=== PATIENT | male | born 1945 | race Caucasian/White ===

== ENCOUNTER 2023-07-16 12:51 | Inpatient (IN) | payer OTHER, SELFPAY ==
[2023-07-16] VITALS (9 sets, daily range): BP systolic 115–130; BP diastolic 62–76; PULSE 65–75; RESP 17–34; TEMP 36.6–37; O2SAT 95–97; BMI 28.8
--- NOTE | 2023-07-16 13:11 | XRR_ITS ---
PROCEDURE INFORMATION: Exam: XR Chest Exam date and time: 07/16/2023 1:21 PM Age: 77 years old Clinical indication: Cough and dyspnea; Prior surgery; Surgery date: 1-6 months; Patient HX: Fluid retention; Recent cabg TECHNIQUE: Imaging protocol: Radiologic exam of the chest. Views: 1 view. COMPARISON: CR (CHEST, ) 06/26/2023 9:00 PM FINDINGS: Lungs: No new focal consolidation. Slightly less conspicuous basilar opacities and probable trace pleural effusions. Pleural spaces: No pneumothorax. Heart/Mediastinum: Heart size unchanged. Bones/joints: No acute findings. XR/XR chest 1V portable [id number] IMPRESSION: No new focal consolidation.
--- NOTE | 2023-07-16 13:12 | ECG_ITS ---
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 Measurements Intervals [place] Rate: 70 P: 22 SD: 274 QRS: 59 QRSD: 127 T: 82 QT: 440 QTc: 477 Interpretive Statements SINUS RHYTHM WITH FIRST DEGREE AV BLOCK ANTERIOR MYOCARDIAL INFARCTION , PROBABLY OLD [40+ ms Q WAVE AND/OR ST/T ABNORMALITY IN V3/V4] Compared to ECG 06/26/2023 21:02:03 Myocardial infarct finding now present T-wave abnormality no longer present Electronically Signed On 07-16-2023 15:32:34 AUTO TESTER by Kathy Jett M.D. [id number]
--- NOTE | 2023-07-16 13:36 | W.ED.GENADLT ---
HPI - General Adult General: Chief complaint: General Medical Stated complaint: Swollen legs Time Seen by Provider: 07/16/23 13:11 Source: patient Mode of arrival: ambulatory History of Present Illness: 77-year-old male presents emergency room complaining of swelling in his legs. He has some skin breakdown and bullous formation with serous drainage from his left anterior lower leg. He denies any chest pain he has noticed orthopnea and increasing dyspnea with exertion. Onset (ago): minute(s) Severity: moderate Relieving factors: medication and other (Upright position) Exacerbating factors: other (Supine) Associated symptoms: Reports dyspnea; Deny chest pain, confusion, cough, diaphoresis, decreased appetite, fevers/chills, headache(s), malaise, nausea, rash, palpitations, seizures, short of breath, syncope, vomiting, weakness or other Review of Systems Const: Denies: malaise or diaphoresis Card: Reports: edema, swelling of feet/ankles, dyspnea on exertion and orthopnea; Denies: chest pain, palpitations or syncope Resp: Reports: dyspnea GI: Denies: abdominal pain, nausea or vomiting : Denies: dysuria, urinary frequency or urinary urgency Musc: Denies: neck pain or back pain Skin/Breast: Denies: rash Neuro: Denies: headache(s) or confusion PFSH ED PFSH: Medical History CAD (coronary artery disease) Hypertension A-fib Diabetes Surgical History Hx of CABG Physical Exam Const: GENERAL APPEARANCE: cooperative and comfortable ORIENTATION/CONSCIOUSNESS: Yes awake, Yes oriented to person, Yes oriented to place and Yes oriented to time HENMT: COMMON NORMALS: normocephalic, atraumatic and hearing grossly normal bilaterally HEAD & SCALP: normocephalic and atraumatic Resp: COMMON NORMALS: normal respiratory effort, No retractions and No use of accessory muscles AUSCULTATION: crackles Cardio: COMMON NORMALS: regular rate, regular rhythm and No murmurs present (Cardio) RATE: regular rate RHYTHM: regular rhythm GI: COMMON NORMALS: Soft to palpation and No hepatosplenomegaly present AUSCULTATION: Yes normoactive bowel sounds PALPATION: Yes Soft to palpation, No Tenderness to palpation present (GI), No Guarding due to palpation present (GI) and Yes No hepatosplenomegaly present Extremity: COMMON NORMALS: normal to inspection, capillary refill normal, no clubbing, cyanosis or edema, no calf tenderness and no pedal edema Neuro: SENSORIUM/ORIENTATION: Yes oriented to person, Yes oriented to place and Yes oriented to time Skin: COMMON NORMALS: no rashes or lesions noted GENERAL SKIN EXAM: no rashes or lesions noted Course Vital Signs: Vital signs: Vital Signs Temperature 97.8 F 07/16/23 16:44 Pulse Rate 75 07/16/23 16:44 Respiratory Rate 23 H 07/16/23 16:44 Blood Pressure 129/76 07/16/23 16:44 Pulse Oximetry 95 07/16/23 16:44 Oxygen Delivery Me thod Room Air 07/16/23 15:07 MDM - General Adult Medical Decision Making Acute decompensated congestive heart failure with mild acute kidney injury and hyperkalemia. Given Bumex calcium chloride and albuterol for hypokalemia as well as to help improve fluid overload. Discussed with hospitalist will admit. Patient not a good candidate for outpatient treatment as I think increasing diuretics unsupervised to lead to hyperkalemia and significant worsening in risk for the patient. Medical Records I reviewed the patient's medical records. Lab Data I reviewed the patient's lab results. 07/16/23 13:34 07/16/23 13:34 Radiology Impressions Chest X-Ray 07/16/23 13:11 IMPRESSION: No new focal consolidation. Laboratory Results WBC 10.11 10^3/uL (3.29-11.43) 07/16/23 13:34 RBC 4.51 10^6/uL (3.85-5.65) 07/16/23 13:34 Hgb 13.20 g/dL (11.27-16.99) 07/16/23 13:34 Hct 41.9 % (37-53) 07/16/23 13:34 MCV 92.9 fl (82-101) 07/16/23 13:34 MCH 29.3 pg (27-33) 07/16/23 13:34 MCHC 31.5 g/dL (30-55) 07/16/23 13:34 RDW 17.2 % (12.1-15.1) H 07/16/23 13:34 Plt Count 278 10^3/cmm (157-399) 07/16/23 13:34 MPV 10.5 fL (7.4-10.4) H 07/16/23 13:34 Neut % (Auto) 72.2 % 07/16/23 13:34 Lymph % (Auto) 13.1 % 07/16/23 13:34 [place] % (Auto) 10.0 % 07/16/23 13:34 Eos % (Auto) 3.2 % 07/16/23 13:34 Baso % (Auto) 0.7 % 07/16/23 13:34 Neut # (Auto) 7.31 10^3/uL (1.8-7.7) 07/16/23 13:34 Lymph # (Auto) 1.3 10^3/uL (0.8-4.8) 07/16/23 13:34 [place] # (Auto) 1.0 10^3/uL (0.2-0.9) H 07/16/23 13:34 Eos # (Auto) 0.3 10^3/uL (0.0-0.8) 07/16/23 13:34 Baso # (Auto) 0.1 10^3/uL (0.0-0.1) 07/16/23 13:34 Nucleated RBC % (auto) 0 % 07/16/23 13:34 Nucleated RBCs # 0.0 /100WBC 07/16/23 13:34 Sodium 140 mmol/L (136-145) 07/16/23 13:34 Potassium 5.8 mmol/L (3.5-5.1) H 07/16/23 13:34 Chloride 100 mmol/L (98-107) 07/16/23 13:34 Carbon Dioxide 31 mmol/L (22-29) H 07/16/23 13:34 Anion Gap 14.8 (5-19) 07/16/23 13:34 BUN 46 mg/dL (8-23) H 07/16/23 13:34 Creatinine 1.5 mg/dL (0.7-1.2) H 07/16/23 13:34 GFR Calculation Not Reportable 07/16/23 13:34 Glucose 266 mg/dL (65-115) H 07/16/23 13:34 Calculated Osmolality 311 mOsm/kg (285-295) H 07/16/23 13:34 Calcium 8.5 mg/dL (8.5-10.5) 07/16/23 13:34 Total Bilirubin 0.4 mg/dL (0.15-1.2) 07/16/23 13:34 AST 27 U/L (0-40) 07/16/23 13:34 ALT 24 U/L (0-41) 07/16/23 13:34 Alkaline Phosphatase 83 U/L (40-130) 07/16/23 13:34 Troponin T Baseline 30 ng/L (0-15) H 07/16/23 13:34 Troponin T 120 Minute 26.29 ng/L (0-15) H 07/16/23 15:14 Delta Troponin T -3.71 ABS# (0-10) L 07/16/23 15:14 NT-Pro-B Natriuret Pep 34410 pg/mL (0-450) H 07/16/23 13:34 Total Protein 6.5 g/dL (6.6-8.7) L 07/16/23 13:34 Albumin 4.0 g/dL (3.5-5.2) 07/16/23 13:34 Globulin 2.5 g/dL (1.3-4.6) 07/16/23 13:34 Urine Color Yellow (Yellow) 07/16/23 14:08 Urine Appearance Clear (CLEAR) 07/16/23 14:08 Urine pH 7 (5-7) 07/16/23 14:08 Ur Specific [place] 1.005 (1.005-1.030) 07/16/23 14:08 Urine Protein Neg (Negative) 07/16/23 14:08 Urine Glucose (UA) 4+ (Normal) H 07/16/23 14:08 Urine Ketones Negative (Negative) 07/16/23 14:08 Urine Blood Neg (Negative) 07/16/23 14:08 Urine Nitrate Negative (Negative) 07/16/23 14:08 Urine Bilirubin Neg (Negative) 07/16/23 14:08 Urine Urobilinogen Norm mg/dL (Negative) 07/16/23 14:08 Ur Leukocyte Esterase Negative (Negative) 07/16/23 14:08 All radiology interpretation(s) finalized by discharge Discharge Plan Discharge Patient Disposition: Admitted As Inpatient Admit Provider: Soraida Guzman Clinical Impression: Acute on chronic systolic heart failure, MESFIN (acute kidney injury), Atherosclerotic heart disease of [place] coronary artery without angina pectoris, Acute hyperkalemia Condition: Stable Coding Level of Care Code ED Interior Design Principal for Dana Silver
[2023-07-16 13:53] LABS: Basophils # 0.1 10^3/uL (0.0-0.1); Basophils % 0.7 %; Eosinophils # 0.3 10^3/uL (0.0-0.8); Eosinophils % 3.2 %; Hematocrit 41.9 % (37-53); Lymphocytes # 1.3 10^3/uL (0.8-4.8); Lymphocytes % 13.1 %; Mean Corpuscular HGB Conc 31.5 g/dL (30-55); Mean Corpuscular Hemoglobin 29.3 pg (27-33); Mean Corpuscular Volume 92.9 fl (82-101); Mean Platelet Volume 10.5 fL (7.4-10.4); Neutrophils # 7.31 10^3/uL (1.8-7.7); Neutrophils % 72.2 %; Nucleated Red Blood Cells % 0 %; Platelet Count 278 10^3/cmm (157-399); Red Blood Count 4.51 10^6/uL (3.85-5.65); Red Cell Distribution Width 17.2 % (12.1-15.1); White Blood Count 10.11 10^3/uL (3.29-11.43)
[2023-07-16] MEDS: bumetanide 0.25 mg/mL SDV 4 mL 2 MG IVP (14:02)
--- NOTE | 2023-07-16 14:08 | PC.PHAR ---
PT UNSURE OF SOME OF HIS HOME MEDS- PT FILLS WITH [facility]- [facility] IS CLOSED TODAY UNABLE TO FAX FOR CURRENT MED LIST- PT STS HE IS NOT USING ANY OF HIS EYE DROPS AT THIS TIME
[2023-07-16 14:11] LABS: Add Urine Microscopic? NO; Charge for UA Resulting for Rev
[2023-07-16 14:16] LABS: Bilirubin Urine Neg (Negative); Blood Urine Neg (Negative); Glucose Urine UA 4+ (Normal); Ketones Urine Negative (Negative); Leukocyte Esterase Urine Negative (Negative); Nitrate Urine Negative (Negative); Protein Urine Neg (Negative); Specific Gravity, Urine 1.005 (1.005-1.030); Urine Appearance Clear (CLEAR); Urine Color Yellow (Yellow); Urobilinogen Urine Norm (Negative); pH Urine 7 (5-7)
[2023-07-16 14:24] LABS: Alanine Aminotransferase 24 U/L (0-41); Alkaline Phosphatase 83 U/L (40-130); Anion Gap 14.8 (5-19); Aspartate Amino Transferase 27 U/L (0-40); Blood Urea Nitrogen 46 mg/dL (8-23); Calcium 8.5 mg/dL (8.5-10.5); Carbon Dioxide 31 mmol/L (22-29); Chloride 100 mmol/L (98-107); Globulin 2.5 g/dL (1.3-4.6); Glucose 266 mg/dL (65-115); NT Pro B Type Natriuretic Pept 11104 pg/mL (0-450); Osmolality Calculated 311 mOsm/kg (285-295); Potassium 5.8 mmol/L (3.5-5.1); Sodium 140 mmol/L (136-145); Total Bilirubin 0.4 mg/dL (0.15-1.2); Total Protein 6.5 g/dL (6.6-8.7)
[2023-07-16 14:26] LABS: Creatinine Clr Calc Pharmacy 44.0494
[2023-07-16 14:28] LABS: Troponin(5th) Baseline 30 ng/L (0-15)
[2023-07-16] MEDS: calcium chloride 10% Syr 10 mL 2 GM IVP (14:50)
[2023-07-16] MEDS: albuterol 2.5 mg/3 mL Neb 5 MG INHALATION (14:53)
--- NOTE | 2023-07-16 15:12 | ECG_ITS ---
[facility] Test Date: 2023-07-16 Pat Name: Mike Melgar Department: Room: Gender: Male Solution Coordinator: : 1945 Requested By: Benji Pearson Order Number: [id number] Reading MD: Kathy Jett M.D. Measurements Intervals [place] Rate: 72 P: 138 TN: 260 QRS: 150 QRSD: 116 T: 128 QT: 410 QTc: 450 Interpretive Statements SINUS RHYTHM WITH FIRST DEGREE AV BLOCK POSSIBLE RIGHT VENTRICULAR HYPERTROPHY [SOME/ALL OF: PROMINENT R IN V1, LATE TRANSITION, RAD, CHANO, SSS] ANTERIOR MYOCARDIAL INFARCTION , PROBABLY OLD [40+ ms Q WAVE AND/OR ST/T ABNORMALITY IN V3/V4] INFERIOR MYOCARDIAL INFARCTION , PROBABLY OLD [40+ ms Q WAVE AND/OR ST/T ABNORMALITY IN II/aVF] Compared to ECG 07/16/2023 13:37:53 No significant changes Electronically Signed On 07-16-2023 15:38:31 STEEL RULE DIE MAKER APPRENTICE by Kathy Jett M.D. [id number]
[2023-07-16 15:39] LABS: Troponin 5 2HR 26.29 ng/L (0-15)
[2023-07-16 15:40] LABS: Troponin 5 2HR Delta -3.71 ABS# (0-10)
--- NOTE | 2023-07-16 19:12 | ECG_ITS ---
[facility] Test Date: 2023-07-17 Pat Name: Mike Melgar Department: Room: 108 Gender: Male Assistant Kitchen Manager: : 1945 Requested By: Benji Pearson Order Number: [id number] Timmy MD: Kathy Jett M.D. Measurements Intervals [place] Rate: 64 P: 21 NE: 240 QRS: 75 QRSD: 120 T: 129 QT: 449 QTc: 464 Interpretive Statements SINUS RHYTHM WITH FIRST DEGREE AV BLOCK POSSIBLE ANTERIOR MYOCARDIAL INFARCTION , OF INDETERMINATE AGE [30 ms Q WAVE IN V3/V4, OR R < 0.2 mV IN V4] Compared to ECG 07/16/2023 15:32:08 Atrial abnormality no longer present Myocardial infarct finding still present Electronically Signed On 07-17-2023 21:02:12 OUTBOUND TELEMARKETING REPRESENTATIVE by Kathy Jett M.D. [id number]
--- NOTE | 2023-07-16 19:44 | PM.HP ---
Providers/Chief Complaint Admitting Physician: Soraida Guzman MD Primary Care Provider: Kinza Barbour APN Chief Complaint: Swollen legs History of Present Illness Mike Melgar is a 77 yo w/ a 3v CABG on 03/11/2024, HTN, HLD, IDDM2, Paroxysmal Afib, who presents to [facility]'s ED on 07/16/2023 with complaints of intractable b/l LE swelling. He states that he was informed that it would take about 3 months for the b/l LE swelling to resolve, and it has been 4 months, but the LE swelling has not resolved. In addition to the LE swelling, he is starting to notice a wound w/ associated pain at the site of the wound, in his L. anterior leg as a result of the wound. He endorses b/l LE heaviness with walking difficulty squatting down due to tightness in the b/l LE. He complains that the b/l LE has extended to his thighs. He states that he does not have SOB or PND. He has a one pillow orthopnea. He complains that he is only dyspneic when he bends over to tie his shoes, because his abdomen is distended and also filled with fluid. He complains of intermittent L. sided chest tightness, but he does not remember the last time that it occurred. He denies fever, chills, dizziness, light headedness, LOC, palpitations, visual disturbances. The wound on his L. anterior millan and the fluid leakage from the wound prompted him to present to the ED. Of note, he tells me that his Eliquis dose was decreased due to nose bleeds. In the ED, His EKG showed NSR w/ TWI in V1, V2 and flat T-waves in V3-V5. His potassium was 5.8. He was medically managed w/ 2mg Bumex IVP x 1, Calcium chloride 2g IVP x 1, and albuterol 5mg inhalation x 1. Review of Systems Const: Denies: fever(s), chills or change in appetite Eyes: Denies: change in vision ENMT: Reports: nasal discharge (chronic ) and other (no sore throat); Denies: ear or mastoid pain Card: Reports: chest pain ( chest tightness ), irregular heart rhythm and swelling of feet/ankles; Denies: palpitations or lightheadedness Resp: Denies: dyspnea, non-productive cough or wheezing GI: Denies: abdominal pain, nausea, vomiting, diarrhea, constipation, hematochezia or melena : Reports: urinary urgency, urinary hesitancy, change in urine stream and nocturia; Denies: dysuria or urinary frequency Musc: Reports: joint pain ( b/l hip arthritis ) and other (leg pain) Skin/Breast: Reports: other (L. lower anterior wound); Denies: rash Neuro: Reports: other (no LOC); Denies: headache(s) or dizziness Psych: Reports: anxiety and depression; Denies: suicidal ideation or homicidal ideation Endo: Denies: cold intolerance or heat intolerance Cuong/Lymph: Reports: easy bruising; Denies: easy bleeding All/Imm: Denies: food intolerance Medications/Allergies Home Medications Medication Instructions Recorded Confirmed Last Taken Type empagliflozin 25 mg tablet 12.5 mg (1/2 x 25 mg) PO DAILY 30 03/25/23 07/16/23 07/16/23 Rx days #30 tabs glucometer testing kit #1 ea 03/25/23 07/16/23 Unknown Rx metoprolol tartrate 25 mg tablet 12.5 mg (1/2 x 25 mg) PO BID 30 03/25/23 07/16/23 Unknown Rx days #30 tabs paroxetine HCl 30 mg tablet (Paxil) 15 mg (1/2 x 30 mg) PO DAILY 30 03/25/23 07/16/23 07/16/23 Rx days #15 tabs amiodarone 200 mg tablet 200 mg PO DAILY #90 tabs 04/19/23 07/16/23 07/16/23 Rx potassium chloride 10 mEq 10 meq PO BID 30 days #180 tabs 04/19/23 07/16/23 07/16/23 Rx tablet,extended release (Klor-Con) clopidogrel 75 mg tablet 75 mg PO DAILY 05/21/23 07/16/23 Unknown History sacubitril 24 mg-valsartan 26 mg 1 tab PO BID #60 tabs 05/30/23 07/16/23 07/16/23 Rx tablet (Entresto) bumetanide 2 mg tablet 2 mg PO TID #10 tabs 06/26/23 07/16/23 Unknown Rx apixaban 2.5 mg tablet 2.5 mg PO BID 07/16/23 07/16/23 07/16/23 History furosemide 20 mg tablet 20 mg PO BID 07/16/23 07/16/23 07/16/23 History Allergies Allergy/AdvReac Type Severity Reaction Status Date / Time procaine [From Novocain] Allergy ALGY-Difficulty Verified 06/14/23 14:25 Breathing zolpidem [From Ambien] AdvReac Intermediate ADR-Confusi Verified 06/14/23 14:25 on PFSH Acute PFSH: Medical History (Updated 07/16/23 @ 17:40 by Benji Bourgeois DO) CAD (coronary artery disease) Hypertension A-fib Diabetes Surgical History (Updated 07/16/23 @ 20:09 by Soraida Guzman MD) H/O elbow surgery left elbow Hx of cataract surgery Right eye Hx of right inguinal hernia repair Hx of CABG Family History Mother Leukemia Father Diabetes mellitus, type 2 Other Learning disability Social History (Updated 07/16/23 @ 20:11 by Soraida Guzman MD) Smoking and tobacco/nicotine status: never used tobacco/nicotine Alcohol intake: former Substance/Drug Use: never Vitals/I&O/Wt Last Vital Signs Temp 97.8 F 07/16/23 16:44 Pulse 75 07/16/23 16:44 Resp 23 H 07/16/23 16:44 BP 129/76 07/16/23 16:44 Pulse Ox 95 07/16/23 16:44 O2 Del Method Room Air 07/16/23 19:32 Weight last 48 hrs Weight 100.108 kg Weight 86.183 kg Physical Exam Const: GENERAL APPEARANCE: cooperative and comfortable ORIENTATION/CONSCIOUSNESS: Yes awake, Yes oriented to person and Yes oriented to place HENMT: HEAD & SCALP: normocephalic and atraumatic FACE & SINUS: normal facial exam NOSE: Normal external nose present EXTERNAL EAR: Yes external ears normal MOUTH: Normal oral and palatal mucosa present THROAT: posterior oropharynx normal Eye: CONJUNCTIVA: Yes conjunctivae normal PUPIL: Yes Equal, round and reactive pupils present EOM: No EOM abnormal Neck/C-Spine: GENERAL: Yes normal visual inspection and Yes trachea midline THYROID: Thyroid normal CAROTIDS: No normal carotid upstroke CERVICAL SPINE: Yes cervical ROM normal Lymph: LYMPHATIC: no lymphadenopathy noted Resp: OTHER: diminished breath sounds in the b/l lower lung bases. Cardio: JUGULAR VENOUS DISTENTION: JVD positive to the level of the earlobe RATE: regular rate RHYTHM: regular rhythm HEART SOUNDS: Gallop heart sound present S3 gallop BRUITS: no carotid bruits PERIPHERAL PULSES: radial pulses present OTHER: difficult to appreciated DP and PT pulses due to pitting edema. GI: OTHER: BS+, nontender, non-distended, no guarding, no rigidity, no rebound tenderness, no organomegaly. Abdominal distension. Extremity: NARRATIVE EXTREMITY EXAM: anasarca to the hips. Neuro: SENSORIUM/ORIENTATION: Yes alert, Yes oriented to person, Yes oriented to place and Yes oriented to time CRANIAL NERVES: Yes CN normal except as noted SPEECH: speech normal SENSORY EXAM: No sensory level loss detected MOTOR EXAM: 5/5 motor strength present throughout and Normal motor muscle tone present throughout Psych: APPEARANCE: Yes grossly normal ATTITUDE: Yes calm and Yes engaged ACTIVITY/MOTOR BEHAVIOR: Yes appropriate eye contact SPEECH: Yes normal speech MOOD & AFFECT: Yes anxious THOUGHT PROCESS: Normal thought process present THOUGHT CONTENT: Yes Normal thought content present ATTENTION/CONCENTRATION: Yes attention grossly intact MEMORY/COGNITION: Yes memory grossly intact Skin: NARRATIVE SKIN EXAM: L. lower anterior tibia venous ulcer. Data 07/16/23 13:34 07/16/23 21:39 A&P Assessment and plan (1) Acute on chronic systolic heart failure: (2) Atherosclerotic heart disease of [place] coronary artery without angina pectoris: Qualifiers: [place] vs. transplanted heart: [place] heart Qualified Code(s): I25.10 - Atherosclerotic heart disease of [place] coronary artery without angina pectoris (3) A-fib: Qualifiers: Atrial fibrillation type: paroxysmal Qualified Code(s): I48.0 - Paroxysmal atrial fibrillation (4) MESFIN (acute kidney injury): (5) Hypertension: Qualifiers: Hypertension type: primary hypertension Qualified Code(s): I10 - Essential (primary) hypertension Plan Mike Melgar is a 77 yo w/ a 3v CABG on 03/11/2024, HTN, HLD, IDDM2, Paroxysmal Afib, who presents to [facility]'s ED on 07/16/2023 with complaints of intractable b/l LE swelling. The wound on his L. anterior millan and the fluid leakage from the wound prompted him to present to the ED. Of note, he tells me that his Eliquis dose was decreased due to nose bleeds. In the ED, His EKG showed NSR w/ TWI in V1, V2 and flat T-waves in V3-V5. His potassium was 5.8. He was medically managed w/ 2mg Bumex IVP x 1, Calcium chloride 2g IVP x 1, and albuterol 5mg inhalation x 1. #Acute on chronic HFrEF #HTN #HLD #3v CABG - Hold Entresto. Resume Aspirin, Atorvastatin. TSH wnl. - Start Diuresis in the AM. - ECHO ordered. #b/l LE edema: F/u venous duplex US. #Hyperkalemia: Decreasing. Continue to monitor. #MESFIN: possibly due to hypervolemia - Monitor renal fxn. #Paroxysmal Afib: On telemetry. Full dose lovenox. #IDDM2: Insulin glargine 15units x 1. Medium SSI for days and nights. Give 10units Insulin glargine x 1 on the night of 07/16/2023. #L. anterior wound: Keep clean and dry w/ gauze. DVT ppx: Lovenox Attestations Medical Necessity Statement*: Patient needs hospitalization for > 2 midnights for Acute on chronic HFrEF, Anasarca, MESFIN, hyperkalemia Coding Level of Care Code 08393 Diagnoses Acute on chronic systolic heart failure I50.23 Atherosclerosis of [place] coronary artery of [place] heart without angina pectoris I25.10 [place] vs. transplanted heart: [place] heart Paroxysmal atrial fibrillation I48.0 Atrial fibrillation type: paroxysmal MESFIN (acute kidney injury) N17.9 Primary hypertension I10 Hypertension type: primary hypertension
[2023-07-16 20:40] LABS: Troponin 5 6HR 23.78 ng/L (0-15)
[2023-07-16 20:41] LABS: Troponin 5 6HR Delta -6.22 ng/L (0-12)
[2023-07-16 20:56] LABS: Glucose Point of Care 262 mg/dL (70-110)
[2023-07-16 21:18] LABS: Thyroid Stimulating Hormone 2.31 uIU/mL (0.27-4.20)
[2023-07-16 22:08] LABS: Free T4 Free Thyroxine 1.08 ng/dL (0.82-1.77)
[2023-07-16 22:27] LABS: Blood Urea Nitrogen 47 mg/dL (8-23); Calcium 9.3 mg/dL (8.5-10.5); Carbon Dioxide 29 mmol/L (22-29); Chloride 101 mmol/L (98-107); Creatinine Clr Calc Pharmacy 44.3424; Glucose 262 mg/dL (65-115); Osmolality Calculated 311 mOsm/kg (285-295); Sodium 140 mmol/L (136-145)
[2023-07-16 22:31] LABS: Anion Gap 15.2 (5-19); Potassium 5.2 mmol/L (3.5-5.1)
[2023-07-16] MEDS: insulin lispro 100 unit/1 mL SUBCUT (22:48)
[2023-07-16] MEDS: insulin glargine 100 units/1 mL 10 UNIT SUBCUT (23:31)
[2023-07-16] MEDS: enoxaparin 100 mg/mL Syringe SUBCUT (23:31)
[2023-07-17] VITALS (8 sets, daily range): BP systolic 110–128; BP diastolic 58–85; PULSE 64–69; RESP 14–25; TEMP 36.4–36.9; O2SAT 93–96
[2023-07-17 04:25] LABS: Basophils # 0.1 10^3/uL (0.0-0.1); Basophils % 0.8 %; Eosinophils # 0.2 10^3/uL (0.0-0.8); Eosinophils % 2.2 %; Lymphocytes # 1.3 10^3/uL (0.8-4.8); Lymphocytes % 15.7 %; Mean Corpuscular HGB Conc 31.8 g/dL (30-55); Mean Corpuscular Hemoglobin 29.3 pg (27-33); Mean Corpuscular Volume 92.2 fl (82-101); Mean Platelet Volume 10.6 fL (7.4-10.4); Monocytes # 0.9 10^3/uL (0.2-0.9); Monocytes % 10.6 %; Neutrophils # 5.99 10^3/uL (1.8-7.7); Neutrophils % 70.2 %; Nucleated Red Blood Cells % 0 %; Platelet Count 269 10^3/cmm (157-399); Red Blood Count 4.23 10^6/uL (3.85-5.65); Red Cell Distribution Width 17.2 % (12.1-15.1); White Blood Count 8.53 10^3/uL (3.29-11.43)
[2023-07-17 04:39] LABS: Partial Thromboplastin Time 35.3 SECONDS (23.9-36.7)
[2023-07-17 04:46] LABS: Alanine Aminotransferase 21 U/L (0-41); Albumin Level 3.5 g/dL (3.5-5.2); Alkaline Phosphatase 71 U/L (40-130); Aspartate Amino Transferase 17 U/L (0-40); Blood Urea Nitrogen 42 mg/dL (8-23); Calcium 8.9 mg/dL (8.5-10.5); Carbon Dioxide 29 mmol/L (22-29); Chloride 99 mmol/L (98-107); Cholesterol 126 mg/dL (0-200); Creatinine Clr Calc Pharmacy 47.2985; Estmated Average Glucose 203; Globulin 2.8 g/dL (1.3-4.6); Glucose 119 mg/dL (65-115); HDL Cholesterol 35 mg/dL (60-100); Hemoglobin A1C 8.7 % (4.0-6.0); LDL Cholesterol Calculated 84 mg/dL (50-129); Magnesium 2.5 mg/dL (1.7-2.3); Osmolality Calculated 292 mOsm/kg (285-295); Phosphorus 4.8 mg/dL (2.5-4.5); Sodium 135 mmol/L (136-145); Total Bilirubin 0.7 mg/dL (0.15-1.2); Total Protein 6.3 g/dL (6.6-8.7); Triglycerides 36 mg/dL (0-150)
[2023-07-17] MEDS: pantoprazole DR 40 mg Tablet PO (05:02)
--- NOTE | 2023-07-17 06:00 | USR_ITS ---
PROCEDURE INFORMATION: Exam: US Duplex Lower Extremity Veins, Bilateral Exam date and time: 07/17/2023 10:29 AM Age: 77 years old Clinical indication: Edema, localized; Lower extremity, bilateral; Additional info: B/l le swelling. TECHNIQUE: Imaging protocol: Real-time duplex ultrasound of the bilateral extremities with 2-D goodson scale, color Doppler flow and spectral waveform analysis including responses to compression and other maneuvers (when performed) with image documentation. Complete exam focused on the lower extremity veins. COMPARISON: US renal BI* [id number] 05/21/2023 2:27 PM FINDINGS: Right deep veins: Unremarkable. The common femoral, femoral, proximal profunda femoral and popliteal veins are patent without thrombus. Normal Doppler waveforms. Normal compressibility and/or augmentation response. Left deep veins: Unremarkable. The common femoral, femoral, proximal profunda femoral and popliteal veins are patent without thrombus. Normal Doppler waveforms. Normal compressibility and/or augmentation response. Superficial veins: Greater saphenous veins at the saphenofemoral junctions are patent bilaterally without thrombus. Soft tissues: Unremarkable. US/[place] [id number] IMPRESSION: No evidence of deep vein thrombosis.
[2023-07-17 06:18] LABS: Glucose Point of Care 112 mg/dL (70-110)
--- NOTE | 2023-07-17 07:00 | USCV_ITS ---
Mike Melgar Age: 77 Gender: M : 1945 Exam Date: 07/17/2023 09:25 Ordering Phys: Soraida Guzman MD Technologist: Ankur Mancilla [place] [facility] [place]: heart failure BP: 123 / 60 HR: Rhythm: Sinus Technical Quality: Adequate MEASUREMENTS (Male / Female) Normal Values 2D ECHO LVOT Diameter 2.4 cm LV Ejection Fraction MOD 2C 36.2 % LV Ejection Fraction 2C AL 0.0 % LA Diameter 4.7 cm IVC Diameter 2.1 cm M-MODE LA Ao Ratio MM 1.4 AV Cusp Separation MM 1.8 cm DOPPLER AV Peak Velocity 128.0 cm/s LVOT Peak Velocity 51.0 cm/s AV Area Cont Eq vti 2.0 cm squared AV Area Cont Eq pk 1.7 cm squared MV Peak Velocity 344.5 cm/s MV Area PHT 3.2 cm squared Mitral E to A Ratio 1.3 TV Peak Velocity 241.8 cm/s TR Peak Velocity 346.0 cm/s TR Peak Gradient 47.9 mmHg TR Mean Velocity 251.0 cm/s TR Mean Gradient 27.3 mmHg TR Velocity Time Integral 122.0 cm PV Peak Velocity 79.0 cm/s RV Ejection Time 0.3 s FINDINGS Left Ventricle Moderate diffuse hypokinesis of the septum and the anteroseptal segments. Mild diffuse hypokinesia of the inferior wall. Overall ejection fraction around 36%.Grade III/IV diastolic dysfunction (restrictive filling pattern), severely elevated filling pressures. Right Ventricle Normal right ventricular size and systolic function. Right Atrium Mildly increased right atrial size. Left Atrium Mildly increased left atrial size. Mitral Valve Thickened mitral valve. Mild mitral annular calcification. Mild mitral valve regurgitation. Aortic Valve Mild aortic valve regurgitation. Tricuspid Valve Moderate tricuspid valve regurgitation. Pulmonic Valve Mild to moderate pulmonary valve regurgitation. Pericardium No pericardial effusion. Aorta Normal aortic annulus size. IVC Normal inferior vena cava. CONCLUSIONS Mildly dilated LV cavity. Multiple wall motion normalities as mentioned above. Overall ejection fraction around 36%. Grade III/IV diastolic dysfunction (restrictive filling pattern), severely elevated filling pressures. Mild biatrial enlargement Thickened mitral valve. Mild mitral annular calcification. Mild mitral valve regurgitation. Mild aortic valve regurgitation. Moderate tricuspid valve regurgitation. Mild to moderate pulmonary valve regurgitation. There is no pericardial effusion. There are no intracardiac masses. Compared to the study from 05/24/2023, there is some improvement in the LV ejection fraction Dr Kathy Jett MD [facility] (Electronically Signed) Final Date: 17 July 2023 16:39 S
[2023-07-17] MEDS: amiodarone 200 mg Tablet PO (08:29)
[2023-07-17] MEDS: clopidogrel 75 mg Tablet PO (08:29)
[2023-07-17] MEDS: acetaZOLAMIDE 250 mg Tablet PO (08:53)
--- NOTE | 2023-07-17 09:22 | USR_ITS ---
PROCEDURE INFORMATION: Exam: US Abdomen Complete Exam date and time: 07/17/2023 5:24 PM Age: 77 years old Clinical indication: Other: Abdominal distention; Additional info: Abdominal distension, patient ate breakfast. Patient is to remain npo and will scan this TECHNIQUE: Imaging protocol: Real-time ultrasound of the abdomen with image documentation. Complete exam. COMPARISON: US gall bladder [id number] 05/24/2023 8:31 PM FINDINGS: Liver: The liver demonstrates an irregular contour and parenchymal heterogeneity consistent with cirrhosis. I see no liver mass. Gallbladder: Normal. No gallstones. There is no gallbladder wall thickening. Biliary ducts: Normal. No stones. No dilation. Pancreas: Visualized pancreas is unremarkable. Right kidney: There is a 3 cm simple cyst involving the right kidney. Left kidney: Normal. No mass. No hydronephrosis. Spleen: Normal. No splenomegaly. Aorta: Normal. No aneurysm. Inferior vena cava: Normal. US/US abdomen complete* [id number] IMPRESSION: 1. Hepatic cirrhosis 2. 3 cm right renal cyst
--- NOTE | 2023-07-17 09:23 | PM.PN ---
Subjective Subjective: The patient continues to complain about b/l LE swelling. He denies dizziness, lightheadedness, CP, palpitations, SOB, GI or symptoms. He contines to complain of abdominal distention. Patient was seen the second time while he was getting abdominal US. Nurse states that the patient was given the urinal, but was not using the urinal and has been urinating in the bathroom. Patient was encouraged by me to use the urinal. Vitals/I&O/Wt Last Vital Signs Temp 98.5 F 07/17/23 07:14 Pulse 67 07/17/23 07:14 Resp 14 07/17/23 07:14 BP 117/85 07/17/23 07:14 Pulse Ox 94 07/17/23 07:14 O2 Del Method Room Air 07/17/23 07:14 07/16/23 07/17/23 07/17/23 22:59 06:59 14:59 Intake Total 1000 / 1000 240 / 1240 236 / 236 Balance 1000 / 1000 240 / 1240 236 / 236 Weight last 48 hrs Weight 100.108 kg Weight 86.183 kg Physical Exam Const: COMMON NORMALS: alert GENERAL APPEARANCE: cooperative and comfortable ORIENTATION/CONSCIOUSNESS: Yes awake, Yes oriented to person, Yes oriented to place and Yes oriented to time HENMT: COMMON NORMALS: normocephalic, atraumatic, external ears normal and Normal external nose present HEAD & SCALP: normocephalic and atraumatic FACE & SINUS: normal facial exam NOSE: Normal external nose present EXTERNAL EAR: Yes external ears normal MOUTH: Normal oral and palatal mucosa present THROAT: posterior oropharynx normal Eye: COMMON NORMALS: Equal, round and reactive pupils present and conjunctivae normal CONJUNCTIVA: Yes conjunctivae normal PUPIL: Yes Equal, round and reactive pupils present EOM: No EOM abnormal Neck/C-Spine: COMMON NORMALS: Thyroid normal GENERAL: Yes normal visual inspection and Yes trachea midline THYROID: Thyroid normal CAROTIDS: No normal carotid upstroke CERVICAL SPINE: Yes cervical ROM normal Lymph: LYMPHATIC: no lymphadenopathy noted Resp: OTHER: diminished breath sounds in the b/l lower lung bases. Cardio: COMMON NORMALS: regular rate and regular rhythm JUGULAR VENOUS DISTENTION: JVD positive to the level of the earlobe RATE: regular rate RHYTHM: regular rhythm HEART SOUNDS: Gallop heart sound present S3 gallop BRUITS: no carotid bruits PERIPHERAL PULSES: radial pulses present OTHER: difficult to appreciated DP and PT pulses due to pitting edema. GI: OTHER: BS+, nontender, non-distended, no guarding, no rigidity, no rebound tenderness, no organomegaly. Abdominal distension. Extremity: NARRATIVE EXTREMITY EXAM: anasarca to the hips. Neuro: SENSORIUM/ORIENTATION: Yes alert, Yes oriented to person, Yes oriented to place and Yes oriented to time CRANIAL NERVES: Yes CN normal except as noted SPEECH: speech normal SENSORY EXAM: No sensory level loss detected MOTOR EXAM: 5/5 motor strength present throughout and Normal motor muscle tone present throughout Psych: COMMON NORMALS: Normal thought process present and speech normal APPEARANCE: Yes grossly normal ATTITUDE: Yes calm and Yes engaged ACTIVITY/MOTOR BEHAVIOR: Yes appropriate eye contact SPEECH: Yes normal speech MOOD & AFFECT: Yes euthymic mood and Yes anxious THOUGHT PROCESS: Normal thought process present THOUGHT CONTENT: Yes Normal thought content present ATTENTION/CONCENTRATION: Yes attention grossly intact MEMORY/COGNITION: Yes memory grossly intact Skin: NARRATIVE SKIN EXAM: L. lower anterior tibia venous ulcer. Data 07/17/23 03:40 07/17/23 03:40 A&P Assessment and plan (1) Acute on chronic systolic heart failure: (2) Atherosclerotic heart disease of [place] coronary artery without angina pectoris: Qualifiers: [place] vs. 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 The wound on his L. anterior millan and the fluid leakage from the wound prompted him to present to the ED. Of note, he tells me that his Eliquis dose was decreased due to nose bleeds. In the ED, His EKG showed NSR w/ TWI in V1, V2 and flat T-waves in V3-V5. His potassium was 5.8. He was medically managed w/ 2mg Bumex IVP x 1, Calcium chloride 2g IVP x 1, and albuterol 5mg inhalation x 1. #Acute on chronic HFrEF #HTN #HLD #3v CABG - Hold Entresto. Resume Aspirin, Atorvastatin. TSH wnl. - 80mg IVP Lasix + Albumin given in the AM & PM of 07/17/2023. Acetazolamide x 1 ordered for the AM. - ECHO ordered. - Monitor UOP. Strict Is & Os. #b/l LE edema: F/u venous duplex US. #Abdominal Distention: Ordered Abdominal US to evaluate for ascites. #Hyperkalemia: Decreasing. Continue to monitor. #MESFIN: possibly due to hypervolemia - Monitor renal fxn. #Paroxysmal Afib: On telemetry. Full dose lovenox. Resume Amiodarone. Holding #IDDM2: Insulin glargine 15units daily + Medium SSI for days and nights. . #L. anterior venous ulcer: Keep clean and dry w/ gauze. DVT ppx: Lovenox Attestations Medical Necessity Statement*: Patient remains hospitalized for vol overload Coding Level of Care Code 67453 Diagnoses Acute on chronic systolic heart failure I50.23 Atherosclerosis of [place] coronary artery of [place] heart without angina pectoris I25.10 [place] vs. transplanted heart: [place] heart Paroxysmal atrial fibrillation I48.0 Atrial fibrillation type: paroxysmal MESFIN (acute kidney injury) N17.9 Primary hypertension I10 Hypertension type: primary hypertension
[2023-07-17] MEDS: insulin glargine 100 units/1 mL 15 UNIT SUBCUT (09:45)
[2023-07-17] MEDS: albumin 37.5 GM/150 ML VIAL IV ×2 (09:45→21:26)
[2023-07-17] MEDS: enoxaparin 100 mg/mL Syringe SUBCUT ×2 (11:30→22:13)
[2023-07-17] MEDS: FUROsemide 10 mg/mL SDV 10mL 80 MG IVP ×2 (11:31→21:29)
[2023-07-17 11:35] LABS: Glucose Point of Care 183 mg/dL (70-110)
[2023-07-17] MEDS: insulin lispro 100 unit/1 mL SUBCUT ×2 (12:34→20:48)
[2023-07-17 16:34] LABS: Glucose Point of Care 92 mg/dL (70-110)
[2023-07-17 20:00] LABS: Glucose Point of Care 204 mg/dL (70-110)
[2023-07-18] VITALS (9 sets, daily range): BP systolic 117–147; BP diastolic 59–72; PULSE 63–73; RESP 16–26; TEMP 36.7–37.1; O2SAT 95–96
--- NOTE | 2023-07-18 00:09 | PC.NURSE ---
pt was stating that the dressing was burning and requested for dressing to be removed, removed dressing and pt stated that burning sensation was better
[2023-07-18 04:29] LABS: Basophils # 0.1 10^3/uL (0.0-0.1); Basophils % 0.7 %; Eosinophils # 0.2 10^3/uL (0.0-0.8); Eosinophils % 2.4 %; Lymphocytes # 1.3 10^3/uL (0.8-4.8); Lymphocytes % 13.8 %; Mean Corpuscular HGB Conc 31.2 g/dL (30-55); Mean Corpuscular Hemoglobin 28.9 pg (27-33); Mean Corpuscular Volume 92.6 fl (82-101); Mean Platelet Volume 10.4 fL (7.4-10.4); Monocytes # 0.8 10^3/uL (0.2-0.9); Monocytes % 8.6 %; Neutrophils # 7.05 10^3/uL (1.8-7.7); Neutrophils % 74.2 %; Nucleated Red Blood Cells % 0 %; Platelet Count 290 10^3/cmm (157-399); Red Blood Count 4.43 10^6/uL (3.85-5.65); Red Cell Distribution Width 17.1 % (12.1-15.1); White Blood Count 9.51 10^3/uL (3.29-11.43)
[2023-07-18 04:40] LABS: INR 1.24 (0.8-1.2)
[2023-07-18 04:41] LABS: Partial Thromboplastin Time 38.1 SECONDS (23.9-36.7)
[2023-07-18 04:50] LABS: Alanine Aminotransferase 17 U/L (0-41); Albumin Level 4.3 g/dL (3.5-5.2); Alkaline Phosphatase 63 U/L (40-130); Anion Gap 15.9 (5-19); Aspartate Amino Transferase 19 U/L (0-40); Blood Urea Nitrogen 40 mg/dL (8-23); Carbon Dioxide 29 mmol/L (22-29); Chloride 102 mmol/L (98-107); Globulin 2.6 g/dL (1.3-4.6); Glucose 143 mg/dL (65-115); Magnesium 2.5 mg/dL (1.7-2.3); Osmolality Calculated 308 mOsm/kg (285-295); Phosphorus 4.4 mg/dL (2.5-4.5); Potassium 3.9 mmol/L (3.5-5.1); Sodium 143 mmol/L (136-145); Total Bilirubin 0.9 mg/dL (0.15-1.2); Total Protein 6.9 g/dL (6.6-8.7)
[2023-07-18] MEDS: pantoprazole DR 40 mg Tablet PO (06:00)
[2023-07-18 06:40] LABS: Glucose Point of Care 148 mg/dL (70-110)
[2023-07-18] MEDS: insulin glargine 100 units/1 mL 15 UNIT SUBCUT (08:51)
[2023-07-18] MEDS: insulin lispro 100 unit/1 mL SUBCUT ×2 (08:53→12:11)
[2023-07-18] MEDS: FUROsemide 10 mg/mL SDV 4mL 40 MG IVP ×2 (08:53→17:24)
[2023-07-18] MEDS: amiodarone 200 mg Tablet PO (08:54)
[2023-07-18] MEDS: acetaZOLAMIDE 250 mg Tablet PO (08:54)
[2023-07-18] MEDS: clopidogrel 75 mg Tablet PO (08:54)
[2023-07-18 11:33] LABS: Glucose Point of Care 186 mg/dL (70-110)
--- NOTE | 2023-07-18 12:17 | PM.PN ---
Subjective Subjective: Patient was seen this morning, he tells me that his lower extremity edema is improving but he continues to have swelling, denies any chest pain, no shortness of breath no abdominal pain, no fevers, chills no lightheadedness Vitals/I&O/Wt Last Vital Signs Temp 98.4 F 07/18/23 11:09 Pulse 65 07/18/23 11:09 Resp 21 H 07/18/23 11:09 BP 120/59 07/18/23 11:09 Pulse Ox 95 07/18/23 11:09 O2 Del Method Room Air 07/18/23 11:09 07/17/23 07/18/23 07/18/23 22:59 06:59 14:59 Intake Total 236 / 862 150 / 1012 Output Total 475 / 475 750 / 1225 1300 / 1300 Balance -239 / 387 -600 / -213 -1300 / -1300 Weight last 48 hrs Weight 95.254 kg Weight 100.108 kg Weight 86.183 kg Physical Exam Const: COMMON NORMALS: no acute distress and patient oriented x3 Resp: COMMON NORMALS: normal respiratory effort, No retractions, No use of accessory muscles and clear to auscultation bilaterally AUSCULTATION: clear to auscultation bilaterally Cardio: COMMON NORMALS: regular rate, regular rhythm, S1 normal heart sound present and S2 normal heart sound present RATE: regular rate RHYTHM: regular rhythm HEART SOUNDS: S1 normal heart sound present and S2 normal heart sound present GI: COMMON NORMALS: Normal to inspection, nondistended, normoactive bowel sounds present and non-tender Extremity: NARRATIVE EXTREMITY EXAM: 1+ pitting edema Neuro: COMMON NORMALS: patient oriented x3 Psych: COMMON NORMALS: mental status grossly normal Data 07/18/23 03:53 07/18/23 03:53 A&P Assessment and plan (1) Acute on chronic systolic heart failure: (2) Atherosclerotic heart disease of [place] coronary artery without angina pectoris: Qualifiers: [place] vs. 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 The wound on his L. anterior millan and the fluid leakage from the wound prompted him to present to the ED. Of note, he tells me that his Eliquis dose was decreased due to nose bleeds. In the ED, His EKG showed NSR w/ TWI in V1, V2 and flat T-waves in V3-V5. His potassium was 5.8. He was medically managed w/ 2mg Bumex IVP x 1, Calcium chloride 2g IVP x 1, and albuterol 5mg inhalation x 1. #Acute on chronic HFrEF #HTN #HLD #3v CABG -Resume Entresto. Resume Aspirin, Atorvastatin. -Lasix 40 mg IV twice daily -Fluid restrictions at 1000 cc -CONCLUSIONS Mildly dilated LV cavity. Multiple wall motion normalities as mentioned above. Overall ejection fraction around 36%. Grade III/IV diastolic dysfunction (restrictive filling pattern), severely elevated filling pressures. Mild biatrial enlargement Thickened mitral valve. Mild mitral annular calcification. Mild mitral valve regurgitation. Mild aortic valve regurgitation. Moderate tricuspid valve regurgitation. Mild to moderate pulmonary valve regurgitation. There is no pericardial effusion. There are no intracardiac masses. Compared to the study from 05/24/2023, there is some improvement in the LV ejection fraction -Coronary angiography in 06/11/2023 showed -Conclusions 1. Severe multivessel [place] coronary artery disease. Patent bypass grafts including BLISS to LAD, SVG to RCA and SVG to OM.. 2. Patient has prior CABG. Recommendations * Aggressive risk factor modification. * Guideline directed heart failure therapy. - Monitor UOP. Strict Is & Os. #b/l LE edema: F/u venous duplex US no acute DVT #Abdominal Distention: Ordered Abdominal US to evaluate for ascites, has evidence of hepatic cirrhosis possibly cardiac #Hyperkalemia: Decreasing. Continue to monitor. #MESFIN: possibly due to hypervolemia - Monitor renal fxn. #Paroxysmal Afib: On telemetry, resume amiodarone, resume Eliquis #IDDM2: Insulin glargine 15units daily + Medium SSI for days and nights. . #L. anterior venous ulcer: Keep clean and dry w/ gauze. DVT ppx: Eliquis Plan for today diuresis lackluster, urine output 200, creatinine up to 1.7, Lasix 40 mg IV twice daily fluid restrictions, continue to diurese, monitor clinical status, no chest pain complaints Attestations Medical Necessity Statement*: Patient requires hospitalization for CHF exacerbation requiring IV diuresis Diagnoses Acute on chronic systolic heart failure I50.23 Atherosclerosis of [place] coronary artery of [place] heart without angina pectoris I25.10 [place] vs. transplanted heart: [place] heart Paroxysmal atrial fibrillation I48.0 Atrial fibrillation type: paroxysmal MESFIN (acute kidney injury) N17.9 Primary hypertension I10 Hypertension type: primary hypertension
[2023-07-18 16:49] LABS: Glucose Point of Care 97 mg/dL (70-110)
[2023-07-18] MEDS: apixaban 5 mg Tablet 2.5 MG PO (21:23)
[2023-07-19] VITALS (10 sets, daily range): BP systolic 129–156; BP diastolic 61–80; PULSE 67–76; RESP 14–21; TEMP 36.4–37.1; O2SAT 95–97
[2023-07-19 05:15] LABS: Basophils # 0.1 10^3/uL (0.0-0.1); Basophils % 0.8 %; Eosinophils # 0.3 10^3/uL (0.0-0.8); Eosinophils % 3.3 %; Hematocrit 43.1 % (37-53); Lymphocytes # 1.3 10^3/uL (0.8-4.8); Lymphocytes % 13.1 %; Mean Corpuscular HGB Conc 31.3 g/dL (30-55); Mean Corpuscular Volume 92.5 fl (82-101); Mean Platelet Volume 10.1 fL (7.4-10.4); Monocytes # 0.9 10^3/uL (0.2-0.9); Monocytes % 8.9 %; Neutrophils % 73.5 %; Nucleated Red Blood Cells % 0 %; Platelet Count 309 10^3/cmm (157-399); Red Blood Count 4.66 10^6/uL (3.85-5.65); White Blood Count 9.79 10^3/uL (3.29-11.43)
[2023-07-19 05:29] LABS: INR 1.18 (0.8-1.2); Partial Thromboplastin Time 32.4 SECONDS (23.9-36.7)
[2023-07-19 05:34] LABS: Alanine Aminotransferase 15 U/L (0-41); Albumin Level 3.9 g/dL (3.5-5.2); Alkaline Phosphatase 70 U/L (40-130); Aspartate Amino Transferase 15 U/L (0-40); Blood Urea Nitrogen 34 mg/dL (8-23); Calcium 8.8 mg/dL (8.5-10.5); Carbon Dioxide 25 mmol/L (22-29); Chloride 103 mmol/L (98-107); Creatinine Clr Calc Pharmacy 44.9913; Glucose 139 mg/dL (65-115); Magnesium 2.3 mg/dL (1.7-2.3); Osmolality Calculated 302 mOsm/kg (285-295); Phosphorus 3.8 mg/dL (2.5-4.5); Sodium 141 mmol/L (136-145); Total Bilirubin 1.1 mg/dL (0.15-1.2); Total Protein 6.9 g/dL (6.6-8.7)
[2023-07-19] MEDS: FUROsemide 10 mg/mL SDV 4mL 40 MG IVP ×2 (06:14→17:48)
[2023-07-19] MEDS: pantoprazole DR 40 mg Tablet PO (06:15)
[2023-07-19 06:32] LABS: Glucose Point of Care 123 mg/dL (70-110)
[2023-07-19] MEDS: metOLazone 5 MG Tablet PO (08:33)
[2023-07-19] MEDS: acetaZOLAMIDE 250 mg Tablet PO (08:33)
[2023-07-19] MEDS: clopidogrel 75 mg Tablet PO (08:33)
[2023-07-19] MEDS: apixaban 5 mg Tablet 2.5 MG PO ×2 (08:34→21:31)
[2023-07-19] MEDS: amiodarone 200 mg Tablet PO (08:34)
[2023-07-19] MEDS: insulin glargine 100 units/1 mL 15 UNIT SUBCUT (08:35)
[2023-07-19 12:10] LABS: Glucose Point of Care 199 mg/dL (70-110)
--- NOTE | 2023-07-19 13:57 | PM.PN ---
Subjective Subjective: Patient was seen this morning,patient reports that his edema is improving but has developed fluid filled blister on right anterior millan Vitals/I&O/Wt Last Vital Signs Temp 97.8 F 07/19/23 11:44 Pulse 76 07/19/23 11:44 Resp 15 07/19/23 11:44 BP 156/80 07/19/23 11:44 Pulse Ox 97 07/19/23 11:44 O2 Del Method Room Air 07/19/23 04:00 07/18/23 07/19/23 07/19/23 22:59 06:59 14:59 Intake Total 200 / 320 300 / 620 355 / 355 Output Total 750 / 2050 2000 / 4050 1400 / 1400 Balance -550 / -1730 -1700 / -3430 -1045 / -1045 Weight last 48 hrs Weight 90.22 kg Weight 95.254 kg Physical Exam Const: COMMON NORMALS: no acute distress and patient oriented x3 Resp: COMMON NORMALS: normal respiratory effort, No retractions, No use of accessory muscles and clear to auscultation bilaterally AUSCULTATION: clear to auscultation bilaterally Cardio: COMMON NORMALS: regular rate, regular rhythm, S1 normal heart sound present and S2 normal heart sound present RATE: regular rate RHYTHM: regular rhythm HEART SOUNDS: S1 normal heart sound present and S2 normal heart sound present GI: COMMON NORMALS: Normal to inspection, nondistended, normoactive bowel sounds present and non-tender Extremity: NARRATIVE EXTREMITY EXAM: 1+ pitting edema Neuro: COMMON NORMALS: patient oriented x3 Psych: COMMON NORMALS: mental status grossly normal Data 07/19/23 04:44 07/19/23 04:44 A&P Assessment and plan (1) Acute on chronic systolic heart failure: (2) Atherosclerotic heart disease of [place] coronary artery without angina pectoris: Qualifiers: [place] vs. 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 The wound on his L. anterior millan and the fluid leakage from the wound prompted him to present to the ED. Of note, he tells me that his Eliquis dose was decreased due to nose bleeds. In the ED, His EKG showed NSR w/ TWI in V1, V2 and flat T-waves in V3-V5. His potassium was 5.8. He was medically managed w/ 2mg Bumex IVP x 1, Calcium chloride 2g IVP x 1, and albuterol 5mg inhalation x 1. #Acute on chronic HFrEF #HTN #HLD #3v CABG -Resume Entresto. Resume Aspirin, Atorvastatin. -Lasix 40 mg IV twice daily, 1 dose metolazone today -Fluid restrictions at 1000 cc -CONCLUSIONS Mildly dilated LV cavity. Multiple wall motion normalities as mentioned above. Overall ejection fraction around 36%. Grade III/IV diastolic dysfunction (restrictive filling pattern), severely elevated filling pressures. Mild biatrial enlargement Thickened mitral valve. Mild mitral annular calcification. Mild mitral valve regurgitation. Mild aortic valve regurgitation. Moderate tricuspid valve regurgitation. Mild to moderate pulmonary valve regurgitation. There is no pericardial effusion. There are no intracardiac masses. Compared to the study from 05/24/2023, there is some improvement in the LV ejection fraction -Coronary angiography in 06/11/2023 showed -Conclusions 1. Severe multivessel [place] coronary artery disease. Patent bypass grafts including BLISS to LAD, SVG to RCA and SVG to OM.. 2. Patient has prior CABG. Recommendations * Aggressive risk factor modification. * Guideline directed heart failure therapy. - Monitor UOP. Strict Is & Os. #b/l LE edema: F/u venous duplex US no acute DVT #Abdominal Distention: Ordered Abdominal US to evaluate for ascites, has evidence of hepatic cirrhosis possibly cardiac #Hyperkalemia: Decreasing. Continue to monitor. #MESFIN: possibly due to hypervolemia - Monitor renal fxn. #Paroxysmal Afib: On telemetry, resume amiodarone, resume Eliquis #IDDM2: Insulin glargine 15units daily + Medium SSI for days and nights. . #L. anterior venous ulcer: Keep clean and dry w/ gauze. DVT ppx: Eliquis Plan for today continue IV diereses, 1 dose metolazone Attestations Medical Necessity Statement*: patient requires hospitalization for fluid overload, and chf exacerbation Diagnoses Acute on chronic systolic heart failure I50.23 Atherosclerosis of [place] coronary artery of [place] heart without angina pectoris I25.10 [place] vs. transplanted heart: [place] heart Paroxysmal atrial fibrillation I48.0 Atrial fibrillation type: paroxysmal MESFIN (acute kidney injury) N17.9 Primary hypertension I10 Hypertension type: primary hypertension
[2023-07-19 17:26] LABS: Glucose Point of Care 146 mg/dL (70-110)
[2023-07-19] MEDS: insulin lispro 100 unit/1 mL SUBCUT ×2 (17:48→21:31)
[2023-07-19 20:32] LABS: Glucose Point of Care 158 mg/dL (70-110)
[2023-07-20] VITALS: BP 130/71; PULSE 66; RESP 25; TEMP 37.1; O2SAT 97
[2023-07-20 04:00] VITALS: BP 153/76; PULSE 67; RESP 30; TEMP 36.9; O2SAT 97
[2023-07-20 05:02] LABS: Basophils # 0.1 10^3/uL (0.0-0.1); Basophils % 0.8 %; Eosinophils # 0.4 10^3/uL (0.0-0.8); Eosinophils % 4.3 %; Hematocrit 45.4 % (37-53); Lymphocytes # 1.5 10^3/uL (0.8-4.8); Lymphocytes % 15.3 %; Mean Corpuscular HGB Conc 31.1 g/dL (30-55); Mean Corpuscular Hemoglobin 29.1 pg (27-33); Mean Corpuscular Volume 93.6 fl (82-101); Mean Platelet Volume 10.4 fL (7.4-10.4); Monocytes # 0.9 10^3/uL (0.2-0.9); Monocytes % 9.4 %; Neutrophils # 6.61 10^3/uL (1.8-7.7); Neutrophils % 69.8 %; Nucleated Red Blood Cells % 0 %; Platelet Count 304 10^3/cmm (157-399); Red Blood Count 4.85 10^6/uL (3.85-5.65); Red Cell Distribution Width 16.6 % (12.1-15.1); White Blood Count 9.48 10^3/uL (3.29-11.43)
[2023-07-20 05:35] LABS: Alanine Aminotransferase 14 U/L (0-41); Albumin Level 3.8 g/dL (3.5-5.2); Alkaline Phosphatase 74 U/L (40-130); Anion Gap 18.9 (5-19); Aspartate Amino Transferase 14 U/L (0-40); Blood Urea Nitrogen 35 mg/dL (8-23); Calcium 8.9 mg/dL (8.5-10.5); Carbon Dioxide 22 mmol/L (22-29); Chloride 101 mmol/L (98-107); Globulin 3.3 g/dL (1.3-4.6); Glucose 134 mg/dL (65-115); Magnesium 2.4 mg/dL (1.7-2.3); NT Pro B Type Natriuretic Pept 7154 pg/mL (0-450); Osmolality Calculated 296 mOsm/kg (285-295); Phosphorus 4.3 mg/dL (2.5-4.5); Potassium 3.9 mmol/L (3.5-5.1); Sodium 138 mmol/L (136-145); Total Bilirubin 0.9 mg/dL (0.15-1.2); Total Protein 7.1 g/dL (6.6-8.7)
[2023-07-20 06:00] VITALS: PULSE 69
[2023-07-20] MEDS: FUROsemide 10 mg/mL SDV 4mL 40 MG IVP (06:12)
[2023-07-20] MEDS: pantoprazole DR 40 mg Tablet PO (06:12)
[2023-07-20 07:03] VITALS: BP 119/74; PULSE 75; RESP 20; TEMP 36.7; O2SAT 96
[2023-07-20] MEDS: amiodarone 200 mg Tablet PO (08:27)
[2023-07-20] MEDS: apixaban 5 mg Tablet 2.5 MG PO (08:27)
[2023-07-20] MEDS: acetaZOLAMIDE 250 mg Tablet PO (08:28)
[2023-07-20] MEDS: clopidogrel 75 mg Tablet PO (08:28)
[2023-07-20] MEDS: insulin glargine 100 units/1 mL 15 UNIT SUBCUT (08:28)
[2023-07-20] MEDS: metOLazone 5 MG Tablet PO (08:32)
--- NOTE | 2023-07-20 09:59 | PM.DCS ---
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 He states that he was informed that it would take about 3 months for the b/l LE swelling to resolve, and it has been 4 months, but the LE swelling has not resolved. In addition to the LE swelling, he is starting to notice a wound w/ associated pain at the site of the wound, in his L. anterior leg as a result of the wound. He endorses b/l LE heaviness with walking difficulty squatting down due to tightness in the b/l LE. He complains that the b/l LE has extended to his thighs. He states that he does not have SOB or PND. He has a one pillow orthopnea. He complains that he is only dyspneic when he bends over to tie his shoes, because his abdomen is distended and also filled with fluid. He complains of intermittent L. sided chest tightness, but he does not remember the last time that it occurred. He denies fever, chills, dizziness, light headedness, LOC, palpitations, visual disturbances. The wound on his L. anterior millan and the fluid leakage from the wound prompted him to present to the ED. Of note, he tells me that his Eliquis dose was decreased due to nose bleeds. In the ED, His EKG showed NSR w/ TWI in V1, V2 and flat T-waves in V3-V5. His potassium was 5.8. He was medically managed w/ 2mg Bumex IVP x 1, Calcium chloride 2g IVP x 1, and albuterol 5mg inhalation x 1. Patient was admitted to [facility] for heart failure with preserved ejection fraction, received IV diuresis, diuresed over 7 L, will be discharged on Lasix 40 mg twice daily with potassium placement therapy with recheck kidney function and potassium through cardiology on Tuesday Patient does have evidence of hepatic cirrhosis on ultrasound of abdomen, will need to follow-up with primary care provider as outpatient, monitor liver function Cardiac echocardiogram showed Mildly dilated LV cavity. Multiple wall motion normalities as mentioned above. Overall ejection fraction around 36%. Grade III/IV diastolic dysfunction (restrictive filling pattern), severely elevated filling pressures. Mild biatrial enlargement Thickened mitral valve. Mild mitral annular calcification. Mild mitral valve regurgitation. Mild aortic valve regurgitation. Moderate tricuspid valve regurgitation. Mild to moderate pulmonary valve regurgitation. There is no pericardial effusion. There are no intracardiac masses. Compared to the study from 05/24/2023, there is some improvement in the LV ejection fraction Coronary angiogram in May 2023 Conclusions 1. Severe multivessel oneida coronary artery disease. Patent bypass grafts including BLISS to LAD, SVG to RCA and SVG to OM.. 2. Patient has prior CABG. -Spoke to cardiology about echocardiogram findings, continue Entresto continue risk factor modification,, follow-up with cardiology as outpatient Physical Exam Const: COMMON NORMALS: no acute distress and patient oriented x3 Resp: COMMON NORMALS: normal respiratory effort, No retractions, No use of accessory muscles and clear to auscultation bilaterally AUSCULTATION: clear to auscultation bilaterally Cardio: COMMON NORMALS: regular rate, regular rhythm, S1 normal heart sound present and S2 normal heart sound present RATE: regular rate RHYTHM: regular rhythm HEART SOUNDS: S1 normal heart sound present and S2 normal heart sound present GI: COMMON NORMALS: Normal to inspection, nondistended, normoactive bowel sounds present and non-tender Extremity: COMMON NORMALS: no pedal edema Neuro: COMMON NORMALS: patient oriented x3 Psych: COMMON NORMALS: mental status grossly normal Discharge Data Studies Completed and Pending Completed Studies During Hospitalization Category Date Time Status XR chest 1V portable [id number] Stat Exams 07/16/23 13:11 [place] [id number] Routine Ultrasound 07/17/23 06:00 Completed CV. echo complete* [id number] Routine Ultrasound 07/17/23 07:00 Completed US abdomen complete* [id number] Routine Ultrasound 07/17/23 09:22 Completed Pending at discharge Category Date Time Status Complete Blood Count w/Auto AM LABS Lab 07/21/23 04:00 Ordered Complete Blood Count w/Auto AM LABS Lab 07/22/23 04:00 Ordered Comprehensive Metabolic Panel AM LABS Lab 07/21/23 04:00 Ordered Comprehensive Metabolic Panel AM LABS Lab 07/22/23 04:00 Ordered Magnesium AM LABS Lab 07/21/23 04:00 Ordered Magnesium AM LABS Lab 07/22/23 04:00 Ordered NT Pro B Type Natriuretic Pept QAM Lab 07/21/23 06:00 Ordered NT Pro B Type Natriuretic Pept QAM Lab 07/22/23 06:00 Ordered Phosphorus AM LABS Lab 07/21/23 04:00 Ordered Phosphorus AM LABS Lab 07/22/23 04:00 Ordered Radiology Impressions Chest X-Ray 07/16/23 13:11 IMPRESSION: No new focal consolidation. Venous Duplex 07/17/23 06:00 IMPRESSION: No evidence of deep vein thrombosis. Abdomen Ultrasound 07/17/23 09:22 IMPRESSION: 1. Hepatic cirrhosis 2. 3 cm right renal cyst Laboratory Results WBC 9.48 10^3/uL (3.29-11.43) 07/20/23 04:05 RBC 4.85 10^6/uL (3.85-5.65) 07/20/23 04:05 Hgb 14.10 g/dL (11.27-16.99) 07/20/23 04:05 Hct 45.4 % (37-53) 07/20/23 04:05 MCV 93.6 fl (82-101) 07/20/23 04:05 MCH 29.1 pg (27-33) 07/20/23 04:05 MCHC 31.1 g/dL (30-55) 07/20/23 04:05 RDW 16.6 % (12.1-15.1) H 07/20/23 04:05 Plt Count 304 10^3/cmm (157-399) 07/20/23 04:05 MPV 10.4 fL (7.4-10.4) 07/20/23 04:05 Neut % (Auto) 69.8 % 07/20/23 04:05 Lymph % (Auto) 15.3 % 07/20/23 04:05 [place] % (Auto) 9.4 % 07/20/23 04:05 Eos % (Auto) 4.3 % 07/20/23 04:05 Baso % (Auto) 0.8 % 07/20/23 04:05 Neut # (Auto) 6.61 10^3/uL (1.8-7.7) 07/20/23 04:05 Lymph # (Auto) 1.5 10^3/uL (0.8-4.8) 07/20/23 04:05 [place] # (Auto) 0.9 10^3/uL (0.2-0.9) 07/20/23 04:05 Eos # (Auto) 0.4 10^3/uL (0.0-0.8) 07/20/23 04:05 Baso # (Auto) 0.1 10^3/uL (0.0-0.1) 07/20/23 04:05 Nucleated RBC % (auto) 0 % 07/20/23 04:05 Nucleated RBCs # 0.0 /100WBC 07/20/23 04:05 PT 15.40 SECONDS (12.1-14.9) H 07/19/23 04:44 INR 1.18 (0.8-1.2) 07/19/23 04:44 APTT 32.4 SECONDS (23.9-36.7) 07/19/23 04:44 Sodium 138 mmol/L (136-145) 07/20/23 04:05 Potassium 3.9 mmol/L (3.5-5.1) 07/20/23 04:05 Chloride 101 mmol/L (98-107) 07/20/23 04:05 Carbon Dioxide 22 mmol/L (22-29) 07/20/23 04:05 Anion Gap 18.9 (5-19) 07/20/23 04:05 BUN 35 mg/dL (8-23) H 07/20/23 04:05 Creatinine 1.4 mg/dL (0.7-1.2) H 07/20/23 04:05 GFR Calculation Not Reportable 07/20/23 04:05 Glucose 134 mg/dL (65-115) H 07/20/23 04:05 POC Glucose 158 mg/dL (70-110) H 07/19/23 20:24 Estimat Average Glucose 203 07/17/23 03:40 Hemoglobin A1c 8.7 % (4.0-6.0) H 07/17/23 03:40 Calculated Osmolality 296 mOsm/kg (285-295) H 07/20/23 04:05 Calcium 8.9 mg/dL (8.5-10.5) 07/20/23 04:05 Phosphorus 4.3 mg/dL (2.5-4.5) 07/20/23 04:05 Magnesium 2.4 mg/dL (1.7-2.3) H 07/20/23 04:05 Total Bilirubin 0.9 mg/dL (0.15-1.2) 07/20/23 04:05 AST 14 U/L (0-40) 07/20/23 04:05 ALT 14 U/L (0-41) 07/20/23 04:05 Alkaline Phosphatase 74 U/L (40-130) 07/20/23 04:05 Troponin T Baseline 30 ng/L (0-15) H 07/16/23 13:34 Troponin T 120 Minute 26.29 ng/L (0-15) H 07/16/23 15:14 Delta Troponin T -3.71 ABS# (0-10) L 07/16/23 15:14 Troponin T Hi Sens 6Hr 23.78 ng/L (0-15) H 07/16/23 19:58 Troponin T Hi Sens 6Hr Delta -6.22 ng/L (0-12) L 07/16/23 19:58 NT-Pro-B Natriuret Pep 7154 pg/mL (0-450) H 07/20/23 04:05 Total Protein 7.1 g/dL (6.6-8.7) 07/20/23 04:05 Albumin 3.8 g/dL (3.5-5.2) 07/20/23 04:05 Globulin 3.3 g/dL (1.3-4.6) 07/20/23 04:05 Triglycerides 36 mg/dL (0-150) 07/17/23 03:40 Cholesterol 126 mg/dL (0-200) 07/17/23 03:40 LDL Cholesterol, Calc 84 mg/dL (50-129) 07/17/23 03:40 HDL Cholesterol 35 mg/dL (60-100) L 07/17/23 03:40 LDL/HDL Ratio 2.40 RATIO (0.00-3.22) 07/17/23 03:40 Cholesterol/HDL Ratio 3.60 mg/dL (1.0-5.00) 07/17/23 03:40 TSH 2.31 uIU/mL (0.27-4.20) 07/16/23 19:58 Free T4 1.08 ng/dL (0.82-1.77) 07/16/23 19:58 Urine Color Yellow (Yellow) 07/16/23 14:08 Urine Appearance Clear (CLEAR) 07/16/23 14:08 Urine pH 7 (5-7) 07/16/23 14:08 Ur Specific [place] 1.005 (1.005-1.030) 07/16/23 14:08 Urine Protein Neg (Negative) 07/16/23 14:08 Urine Glucose (UA) 4+ (Normal) H 07/16/23 14:08 Urine Ketones Negative (Negative) 07/16/23 14:08 Urine Blood Neg (Negative) 07/16/23 14:08 Urine Nitrate Negative (Negative) 07/16/23 14:08 Urine Bilirubin Neg (Negative) 07/16/23 14:08 Urine Urobilinogen Norm mg/dL (Negative) 07/16/23 14:08 Ur Leukocyte Esterase Negative (Negative) 07/16/23 14:08 Vitals Last Vital Signs Temp 98.1 F 07/20/23 07:03 Pulse 75 07/20/23 07:03 Resp 20 H 07/20/23 07:03 BP 119/74 07/20/23 07:03 Pulse Ox 96 07/20/23 07:03 O2 Del Method Room Air 07/20/23 07:03 Discharge Plan Discharge Patient Disposition: Home Condition: Stable Prescriptions: New potassium chloride [Klor-Con M20] 20 mEq tablet,ER particles/crystals 20 meq PO BID 30 Days Qty: 60 0RF furosemide [Lasix] 40 mg tablet 40 mg PO BID 30 Days Qty: 60 0RF insulin aspart U-100 [Novolog FlexPen U-100 Insulin] 100 unit/mL (3 mL) insulin pen See Rx Instructions .ROUTE .COMPLEX Qty: 15 0RF Rx Instructions: Inject, subcut, 3 times daily, after meals, based on sliding scale provided Continued amiodarone 200 mg tablet 200 mg PO DAILY Qty: 90 3RF clopidogrel 75 mg tablet 75 mg PO DAILY Entresto 24-26 mg tablet 1 tab PO BID Qty: 60 0RF empagliflozin 25 mg Tablet 12.5 mg PO DAILY 30 Days Qty: 30 0RF (DME) glucometer testing kit See Rx Instructions .Route .MEDSUPPLY Qty: 1 0RF Rx Instructions: lancets#100 strips#100 paroxetine HCl [Paxil] 30 mg Tablet 15 mg PO DAILY 30 Days Qty: 15 0RF metoprolol tartrate 25 mg Tablet 12.5 mg PO BID 30 Days Qty: 30 0RF apixaban 2.5 mg tablet 2.5 mg PO BID Discontinued Klor-Con 10 10 mEq tablet extended release 10 meq PO BID 30 Days Qty: 180 1RF bumetanide 2 mg tablet 2 mg PO TID Qty: 10 0RF furosemide 20 mg tablet 20 mg PO BID Discharge Orders: Discharge Order (Routine); Ordered 07/20/23 Ordered By: José Julien Referrals: Nadege Sharma FNP [Nurse Practitioner] - 1-3 days Kinza Barbour APN [Primary Care Provider] - Discharge Diet: Cardiac Discharge Activity: Resume usual activity Patient Instructions: Opioid Safety Activity Restrictions/Additional Instructions: - Please limit fluid intake to 1 to 1.2 L of fluid a day -Lasix 40 mg twice daily with potassium replacement therapy -Have cardiology recheck your kidney function on Tuesday -Please monitor your blood sugars closely -Monitor your blood sugars 3 times daily as after meals -Please record your blood sugars, and a blood sugar log -For your NovoLog -Please inject blood sugar after meals based on sliding scale provided -Do not inject insulin if you do not eat as hypoglycemia kills -This is a NovoLog sliding scale -Insulin sliding ?fingerstick? Insulin ?141-180?0 units/sq 181-220?2 units/sq ?221-260?4 units/sq ?261-300 6 units/sq ?301-350?8 units/sq ?351-400 10 units/sq ?401-450?12 units/sq >450? 14units/sq -If your blood sugar is greater than 500 go to the emergency room -If your blood sugar is less than 60 or at anytime you feel lightheaded or dizzy or diaphoretic or have chest palpitations check your blood sugar, and eat a hard candy or drink orange juice and go immediately to the emergency room -Remember hypoglycemia kills, so if his blood sugar is less than 60 we have to increase it by taking in a sugary meal such as a hard candy or orange juice and go to the emergency room -If you have any questions please call us where here to help- Discharge Attestations Time Spent in Discharge Care*: greater than 30 min Status at Discharge: Cognitive status at discharge: cognitively intact, Behavioral status at discharge: cooperative, Quality Metrics Clinical Quality Measures [ No reported AMI, CVA or VTE this stay] Coding Level of Care Code 26586 Total time (in minutes) for Discharge: 45 Diagnoses Acute on chronic systolic heart failure I50.23 Atherosclerosis of oneida coronary artery of one[place] heart without angina pectoris I25.10 [place] vs. transplanted heart: oneida heart Paroxysmal atrial fibrillation I48.0 Atrial fibrillation type: paroxysmal MESFIN (acute kidney injury) N17.9 Primary hypertension I10 Hypertension type: primary hypertension
[2023-07-20 11:00] VITALS: BP 134/75; PULSE 72; RESP 16; TEMP 36.5; O2SAT 98
[2023-07-20 11:26] VITALS: BP 134/75; PULSE 72; RESP 16; TEMP 36.5; O2SAT 98
[2023-07-20 11:28] LABS: Glucose Point of Care 221 mg/dL (70-110)
--- NOTE | 2023-07-20 11:48 | PC.NURSE ---
Patient is given discharge paperwork and is leaving via a cab service.
== END 2023-07-20 11:50 | disposition home or self-care (01) | DRG 291 ==
LOC: ER 13:37 → CSU 17:40
PROVIDERS: Admitting Provider Internal Medicine; Emergency Provider Family Medicine; PCP Nurse Practitioner Family; Visit Provider Family Medicine
DX: I11.0 Hypertensive heart disease with heart failure (principal); I50.23 Acute on chronic systolic (congestive) heart failure; N17.9 Acute kidney failure, unspecified; I25.10 Atherosclerotic heart disease of native coronary artery without angina pectoris; Z95.1 Presence of aortocoronary bypass graft; I48.0 Paroxysmal atrial fibrillation; E11.9 Type 2 diabetes mellitus without complications; K74.60 Unspecified cirrhosis of liver; E87.5 Hyperkalemia; R23.8 Other skin changes
CPT/HCPCS: 36415; 36416; 71045; 76700; 80048; 80053; 80061; 81003; 82947; 82962; 83036; 83735; 83880; 84100; 84439; 84443; 84484; 85025; 85610; 85730; 93005; 93306; 93970; 94640; 96372; 96374; 96375; 96376; 99285; J1650; J1815; J1940; J3490; J7613; P9047

== ENCOUNTER → 2023-08-22 12:53 | Outpatient (BNVA) | payer OTHER, SELFPAY | PROVIDERS: PCP Nurse Practitioner Family; Visit Provider Nurse Practitioner Family | DX: I96 Gangrene, not elsewhere classified (principal); L97.821 Non-pressure chronic ulcer of other part of left lower leg limited to breakdown of skin | CPT/HCPCS: 97597; A6251 ==

== ENCOUNTER → 2023-09-05 13:05 | Outpatient (BNVA) | payer OTHER, SELFPAY | PROVIDERS: PCP Nurse Practitioner Family; Visit Provider Nurse Practitioner Family | DX: E11.52 Type 2 diabetes mellitus with diabetic peripheral angiopathy with gangrene (principal); E11.621 Type 2 diabetes mellitus with foot ulcer; L97.821 Non-pressure chronic ulcer of other part of left lower leg limited to breakdown of skin | CPT/HCPCS: 97602; A6212 ==

== ENCOUNTER 2023-09-07 14:23 | Emergency (ER) | payer OTHER, MEDICARE, SELFPAY ==
--- NOTE | 2023-09-07 14:24 | XR_ITS ---
WS: [id number] Exam: XR chest 1V portable [id number] Date/Time of Exam: 09/07/2023 2:54 PM Reason For Exam: cp Comparison 07/16/2023. The lungs are fully expanded and clear. Cardiac enlargement unchanged. Signs of previous CABG surgery . No obvious pleural effusion. Bony structures are intact. IMPRESSION: 1. Cardiac enlargement unchanged. No acute cardiopulmonary finding.
--- NOTE | 2023-09-07 14:26 | ECG_ITS ---
[facility] Test Date: 2023-09-07 Pat Name: Mike Melgar Department: Room: Gender: Male Personal Service Workers: : 1945 Requested By: Young Mckeon Order Number: [id number] Reading MD: Jose Harris M.D. Measurements Intervals [place] Rate: 73 P: 14 ME: 258 QRS: 56 QRSD: 108 T: 91 QT: 415 QTc: 460 Interpretive Statements SINUS RHYTHM WITH FIRST DEGREE AV BLOCK POSSIBLE LEFT ATRIAL ENLARGEMENT [-0.1mV P-WAVE IN V1/V2] POSSIBLE ANTERIOR MYOCARDIAL INFARCTION , PROBABLY OLD [30 ms Q WAVE IN V3/V4, OR R < 0.2 mV IN V4] Compared to ECG 07/17/2023 00:25:52 No significant changes Electronically Signed On 09-07-2023 15:27:47 CDT by Jose Harris M.D. [id number]
[2023-09-07 14:31] VITALS: BP 138/69; PULSE 74; RESP 16; TEMP 36.4; O2SAT 97
--- NOTE | 2023-09-07 14:41 | ED_ITS ---
HPI - Chest Pain 2 General: Chief Complaint: Chest Pain Stated Complaint: chest pressure Time Seen by Provider: 09/07/23 14:35 Source: patient Mode of arrival: ambulatory Limitations: no limitations History of Present Illness: 77-year-old male who has history of andrés nary artery disease had a CABG in the past he states that he has been having some chest pains he tells me for the last month it has been off-and-on he said some slight worsening the last 3 days states he had pain earlier today he denies any pain currently. Denies any shortness of breath denies any nausea. Associated symptoms: Deny abdominal pain, dyspnea, fever(s), nausea or vomiting Review of Systems 2 Const: Denies: fever(s), chills, body aches or change in appetite ENMT: Denies: throat pain or dental pain Card: Reports: chest pain Resp: Denies: dyspnea GI: Denies: abdominal pain, nausea, vomiting or diarrhea Musc: Denies: neck pain or back pain Skin/Breast: Denies: rash Neuro: Denies: headache(s) PFSH ED 2 PFSH: Medical History (Updated 09/07/23 @ 15:32 by Young Mckeon MD) CAD (coronary artery disease) Hypertension A-fib Diabetes Surgical History H/O elbow surgery left elbow Hx of cataract surgery Right eye Hx of right inguinal hernia repair Hx of CABG Family History Mother Leukemia Father Diabetes mellitus, type 2 Other Learning disability Social History (Updated 07/16/23 @ 20:11 by Soraida Guzman MD) Smoking and tobacco/nicotine status: never used tobacco/nicotine Alcohol intake: former Substance/Drug Use: never Physical Exam 2 Const: COMMON NORMALS: no acute distress, patient oriented x3 and healthy appearing HENMT: COMMON NORMALS: normocephalic and atraumatic HEAD & SCALP: n ormocephalic and atraumatic Eye: COMMON NORMALS: Equal, round and reactive pupils present and EOMs intact bilaterally PUPIL: Yes Equal, round and reactive pupils present Neck/C-Spine: COMMON NORMALS: full ROM and supple Chest: COMMONS NORMALS: normal inspection of the chest and normal palpation of entire chest wall Resp: COMMON NORMALS: normal respiratory effort, No retractions, No use of accessory muscles and clear to auscultation bilaterally AUSCULTATION: clear to auscultation bilaterally Cardio: COMMON NORMALS: regular rate, regular rhythm and No murmurs present (Cardio) RATE: regular rate RHYTHM: regular rhythm GI: COMMON NORMALS: Normal to inspection, nondistended, normoactive bowel sounds present, Soft to palpation, non-tender and no masses PALPATION: Yes Soft to palpation Extremity: COMMON NORMALS: normal to inspection and full ROM Neuro: COMMON NORMALS: patient oriented x3, moves all extremities and no focal motor deficits Psych: COMMON NORMALS: mental status grossly normal, Normal thought process present and cooperative THOUGHT PROCESS: Normal thought process present Skin: COMMON NORMALS: no rashes or lesions noted and no wounds GENERAL SKIN EXAM: no rashes or lesions noted Course 2 Vital Signs: Vital signs: Vital Signs Temperature 97.6 F 09/07/23 14:31 Pulse Rate 74 09/07/23 14:31 Respiratory Rate 16 09/07/23 14:31 Blood Pressure 138/69 09/07/23 14:31 Pulse Oximetry 97 09/07/23 14:31 Oxygen Delivery Me thod Room Air 09/07/23 14:31 MDM - Chest Pain Medical Decision Making Patient presents here with chest pain has been going on for over a month his initial troponin here is at his baseline. 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 Medical Records I reviewed the patient's medical records. Lab Data I reviewed the patient's lab results. 09/07/23 14:53 09/07/23 14:53 Laboratory Results WBC 12.93 10^3/uL (3.29-11.43) H 09/07/23 14:53 RBC 4.67 10^6/uL (3.85-5.65) 09/07/23 14:53 Hgb 14.30 g/dL (11.27-16.99) 09/07/23 14:53 Hct 43.9 % (37-53) 09/07/23 14:53 MCV 94.0 fl (82-101) 09/07/23 14:53 MCH 30.6 pg (27-33) 09/07/23 14:53 MCHC 32.6 g/dL (30-55) 09/07/23 14:53 RDW 14.9 % (12.1-15.1) 09/07/23 14:53 Plt Count 265 10^3/cmm (157-399) 09/07/23 14:53 MPV 10.8 fL (7.4-10.4) H 09/07/23 14:53 Neut % (Auto) 72.7 % 09/07/23 14:53 Lymph % (Auto) 14.2 % 09/07/23 14:53 [place] % (Auto) 9.0 % 09/07/23 14:53 Eos % (Auto) 2.6 % 09/07/23 14:53 Baso % (Auto) 0.6 % 09/07/23 14:53 Neut # (Auto) 9.40 10^3/uL (1.8-7.7) H 09/07/23 14:53 Lymph # (Auto) 1.8 10^3/uL (0.8-4.8) 09/07/23 14:53 [place] # (Auto) 1.2 10^3/uL (0.2-0.9) H 09/07/23 14:53 Eos # (Auto) 0.3 10^3/uL (0.0-0.8) 09/07/23 14:53 Baso # (Auto) 0.1 10^3/uL (0.0-0.1) 09/07/23 14:53 Nucleated RBC % (auto) 0 % 09/07/23 14:53 Nucleated RBCs # 0.0 /100WBC 09/07/23 14:53 PT 14.20 SECONDS (12.1-14.9) 09/07/23 14:53 INR 1.06 (0.8-1.2) 09/07/23 14:53 Sodium 137 mmol/L (136-145) 09/07/23 14:53 Potassium 5.0 mmol/L (3.5-5.1) 09/07/23 14:53 Chloride 101 mmol/L (98-107) 09/07/23 14:53 Carbon Dioxide 25 mmol/L (22-29) 09/07/23 14:53 Anion Gap 16.0 (5-19) 09/07/23 14:53 BUN 31 mg/dL (8-23) H 09/07/23 14:53 Creatinine 1.3 mg/dL (0.7-1.2) H 09/07/23 14:53 GFR Calculation Not Reportable 09/07/23 14:53 Glucose 263 mg/dL (65-115) H 09/07/23 14:53 Calculated Osmolality 300 mOsm/kg (285-295) H 09/07/23 14:53 Calcium 8.9 mg/dL (8.5-10.5) 09/07/23 14:53 Total Bilirubin 0.5 mg/dL (0.15-1.2) 09/07/23 14:53 AST 18 U/L (0-40) 09/07/23 14:53 ALT 16 U/L (0-41) 09/07/23 14:53 Alkaline Phosphatase 89 U/L (40-130) 09/07/23 14:53 Troponin T Baseline 24 ng/L (0-15) H 09/07/23 14:53 Total Protein 7.6 g/dL (6.6-8.7) 09/07/23 14:53 Albumin 4.1 g/dL (3.5-5.2) 09/07/23 14:53 Globulin 3.5 g/dL (1.3-4.6) 09/07/23 14:53 Lipase 39 U/L (13-60) 09/07/23 14:53 All radiology interpretation(s) finalized by discharge EKG Data EKG 1: I personally reviewed and interpreted this EKG as follows: EKG interpretation date: 09/07/23 EKG interpretation time: 14:26 Interpretation: nsr hr [address] or t wave abnormalities qrs 108 qtc 441 Discharge Plan Discharge Patient Disposition: Home Clinical Impression: Chest pain Condition: Stable Prescriptions: No Action amiodarone 200 mg tablet 200 mg PO DAILY Qty: 90 3RF Klor-Con 10 10 mEq tablet extended release 10 meq PO BID 30 Days Qty: 180 1RF clopidogrel 75 mg tablet 75 mg PO DAILY furosemide 40 mg tablet 40 mg PO BID atorvastatin 80 mg Tablet 40 mg PO QPM loperamide 2 mg Capsule 2 mg PO QID PRN (Reason: Diarrhea) glipizide 10 mg Tablet 10 mg PO BID timolol maleate 0.5 % Drops, Once Daily 1 drp OPHTHALMIC (EYE) BEDTIME Voltaren 1 % Gel 4 g TOPICAL QID Rx Instructions: apply to single knee, ankle, foot; for foot includes sole/toes/top of foot sacubitril-valsartan 49-51 mg Tablet 0.5 tab PO BID empagliflozin 25 mg Tablet 12.5 mg PO DAILY 30 Days Qty: 30 0RF (DME) glucometer testing kit See Rx Instructions .Route .MEDSUPPLY Qty: 1 0RF Rx Instructions: lancets#100 strips#100 paroxetine HCl [Paxil] 30 mg Tablet 15 mg PO DAILY 30 Days Qty: 15 0RF metoprolol tartrate 25 mg Tablet 12.5 mg PO BID 30 Days Qty: 30 0RF apixaban 2.5 mg tablet 2.5 mg PO BID insulin aspart U-100 [Novolog FlexPen U-100 Insulin] 100 unit/mL (3 mL) insulin pen See Rx Instructions .ROUTE .COMPLEX Qty: 15 0RF Rx Instructions: Inject, subcut, 3 times daily, after meals, based on sliding scale provided Discharge Orders: Discharge ED (Routine); Ordered 09/07/23 Ordered By: Young Mckeon Referrals: Kinza Barbour APN [Primary Care Provider] - 1-3 days Discharge Diet: Advance as tolerated Discharge Activity: Resume usual activity Patient Instructions: Chest Pain (ED) Coding Level of Care Code ED Talent Rep for Dana Silver
--- NOTE | 2023-09-07 14:41 | PC.PHAR ---
faxed id for med list
--- NOTE | 2023-09-07 14:48 | PC.NURSE ---
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
[2023-09-07 15:04] LABS: Basophils # 0.1 10^3/uL (0.0-0.1); Basophils % 0.6 %; Eosinophils # 0.3 10^3/uL (0.0-0.8); Eosinophils % 2.6 %; Hematocrit 43.9 % (37-53); Lymphocytes # 1.8 10^3/uL (0.8-4.8); Lymphocytes % 14.2 %; Mean Corpuscular HGB Conc 32.6 g/dL (30-55); Mean Corpuscular Hemoglobin 30.6 pg (27-33); Mean Platelet Volume 10.8 fL (7.4-10.4); Monocytes # 1.2 10^3/uL (0.2-0.9); Neutrophils % 72.7 %; Nucleated Red Blood Cells % 0 %; Platelet Count 265 10^3/cmm (157-399); Red Blood Count 4.67 10^6/uL (3.85-5.65); Red Cell Distribution Width 14.9 % (12.1-15.1); White Blood Count 12.93 10^3/uL (3.29-11.43)
[2023-09-07 15:20] LABS: INR 1.06 (0.8-1.2)
[2023-09-07 15:24] LABS: Alanine Aminotransferase 16 U/L (0-41); Albumin Level 4.1 g/dL (3.5-5.2); Alkaline Phosphatase 89 U/L (40-130); Aspartate Amino Transferase 18 U/L (0-40); Blood Urea Nitrogen 31 mg/dL (8-23); Calcium 8.9 mg/dL (8.5-10.5); Carbon Dioxide 25 mmol/L (22-29); Chloride 101 mmol/L (98-107); Globulin 3.5 g/dL (1.3-4.6); Glucose 263 mg/dL (65-115); Lipase 39 U/L (13-60); Osmolality Calculated 300 mOsm/kg (285-295); Sodium 137 mmol/L (136-145); Total Bilirubin 0.5 mg/dL (0.15-1.2); Total Protein 7.6 g/dL (6.6-8.7)
[2023-09-07 15:25] LABS: Troponin(5th) Baseline 24 ng/L (0-15)
[2023-09-07 15:52] VITALS: BP 137/81; PULSE 84; RESP 16; O2SAT 96
== END 2023-09-07 15:53 | disposition home or self-care (01) ==
PROVIDERS: Emergency Provider Emergency Medicine; PCP Nurse Practitioner Family
DX: R07.9 Chest pain, unspecified (principal); Z79.02 Long term (current) use of antithrombotics/antiplatelets; Z79.84 Long term (current) use of oral hypoglycemic drugs; Z79.4 Long term (current) use of insulin; I25.10 Atherosclerotic heart disease of native coronary artery without angina pectoris; I10 Essential (primary) hypertension; E11.9 Type 2 diabetes mellitus without complications; Z95.1 Presence of aortocoronary bypass graft
CPT/HCPCS: 36415; 71045; 80053; 83690; 84484; 85025; 85610; 93005; 99285

== ENCOUNTER → 2023-09-12 15:11 | Outpatient (BNVA) | payer OTHER, SELFPAY | PROVIDERS: PCP Nurse Practitioner Family; Visit Provider Nurse Practitioner Family | DX: E11.52 Type 2 diabetes mellitus with diabetic peripheral angiopathy with gangrene (principal); E11.622 Type 2 diabetes mellitus with other skin ulcer; L97.821 Non-pressure chronic ulcer of other part of left lower leg limited to breakdown of skin | CPT/HCPCS: 97597; 99212 ==